=== PATIENT | female | born 1985 | race Caucasian/White ===

== ENCOUNTER 2021-12-14 16:21 | Emergency (ER) | payer OTHER ==
[2021-12-14] MEDS ORDERED: Naloxone 0.4 MG/ML SDV IVPUSH PRN (16:38)
[2021-12-14] MEDS ORDERED: Sodium Chloride 0.9% 1,000 ML IV ONE (16:49)
[2021-12-14] MEDS ORDERED: Ketorolac 30 MG/ML SDV IVPUSH ONE (16:50)
[2021-12-14] MEDS ORDERED: Ondansetron 4 MG/2 ML SDV IVPUSH ONE (16:50)
[2021-12-14 17:14] LABS: ESTIMATED GFR 68 mL/min (>60)
[2021-12-14] MEDS: Buprenorphine/Naloxone 2-0.5 MG Tab.SL SL ONE ×2 (17:56→20:28)
[2021-12-14] MEDS ORDERED: Buprenorphine/Naloxone 2-0.5 MG Tab.SL SL ONE (19:13)
[2021-12-14] MEDS ORDERED: Potassium Chloride 20 MEQ Tab.ER PO ONE (19:41)
[2021-12-16 11:12] LABS: HBSAG SCREEN Negative (Negative); HCV AB <0.1 s/co ratio (0.0-0.9); HEP A AB, IGM Negative (Negative); HEP B CORE AB, IGM Negative (Negative)
== END 2021-12-14 20:40 ==
LOC: JP.ED 16:21
DX: F11.23 Opioid dependence with withdrawal (principal); Z88.0 Allergy status to penicillin
CPT/HCPCS: 36415; 80053; 80074; 84484; 85025; 87449; 93005; 96361; 96374; 96375; 99285; A9270; J1885; J2405; J7030

== ENCOUNTER 2021-12-15 12:25 | Emergency (ER) | payer OTHER ==
[2021-12-15] MEDS ORDERED: Buprenorphine/Naloxone 8-2 MG Tab.SL SL ONE (12:43)
[2021-12-15] MEDS ORDERED: Buprenorphine/Naloxone 2-0.5 MG Tab.SL SL ONE (14:45)
== END 2021-12-15 15:40 ==
LOC: JP.ED 12:25
DX: G40.909 Epilepsy, unspecified, not intractable, without status epilepticus (principal); F11.23 Opioid dependence with withdrawal; R44.3 Hallucinations, unspecified; F15.10 Other stimulant abuse, uncomplicated; Z88.1 Allergy status to other antibiotic agents; Z90.49 Acquired absence of other specified parts of digestive tract
CPT/HCPCS: 80305; 99284; A9270; J0574